=== PATIENT | female | born 1945 | race Two or more races ===

== ENCOUNTER 2021-09-15 12:13 | Outpatient (CLI) | payer OTHER | END 2021-09-15 13:00 | disposition home or self-care (01) | LOC: MRI 12:13 | PROVIDERS: ATTEND Radiology Diagnostic Radiology | DX: K57.90 Diverticulosis of intestine, part unspecified, without perforation or abscess without bleeding (principal); M47.897 Other spondylosis, lumbosacral region | CPT/HCPCS: 72148 ==